=== PATIENT | female | born 1960 | race Caucasian/White ===

== ENCOUNTER 2016-08-06 12:59 | Emergency (ER) | payer MEDICAID ==
[~2016-08-06] VITALS: Ht 167.6 cm; Wt 83.9 kg
--- NOTE | 2016-08-06 13:48 | Emergency Room Report ---
History of Present Illness Time Seen by MD Berumen Presenting Problem in Triage Pt arrived:Walked Presenting Problem:PT PRESENTED TO [facility] WITH HEADACHE THAT MAKES HER NAUSEATED AND MADE HER VOMIT. PT STATES HER BP WAS ELEVATED OUT THERE AND THEY REFERRED HER TO ED. PT STATES HEADACHE STARTED WED AND THE PAIN IS THERE AND SPIKES AND MAKES HER STOP IN HER TRACKS. 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 N Clinical Suspician of Infection? N Mental Status: 1 - Regular (Normal Baseline) Sepsis Risk:Low Sepsis Risk Have you (or family members/close friends) recently traveled outside the [place]? N If Yes, where/when: Have you had exposure to infectious disease within the past month? TB? Other? Specify: Comment The patient states that on Sunday 5 days ago she was working around a tractor when she had sudden onset of an excruciating headache around the top of her head associated with nausea and dizziness. She says the headache was so severe that 20 minutes she could not walk. Since then she has had persistent frontal headache. Last evening at about 8:00 the headache again became severe while she was shopping. It remained severe into the night and she had some vomiting during the night. Currently she says her headache is just frontal and a slight occipital headache. She continues to have nausea. She denies loss of vision or double vision. She says when she tries to walk she does feel off balance. Yesterday when she was trying to write she says she couldn't spell like she normally does. Denies numbness or weakness of the extremities. Denies neck pain or stiffness. Denies photophobia. No history of severe headaches or migraines. No family history of subarachnoid hemorrhage or cerebral aneurysms. Her mother had a stroke. ALLERGIES Coded Allergies: No Known Allergies (08/06/16) History Medical History General Angina: No [place]: No Hypertension? No Hyperlipidemia? Yes CHF? No COPD? No Asthma? No Hernia? No CVA? No Seizures? No Diabetes? No UTI? Yes Stones? No GB Disease: Yes Hepatitis? No Cataracts? No Glaucoma? No TB? No Cancer? 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 Family History Family Hx Diabetes Yes CAD No Hypertension Yes Hyperlipidemia Yes Cancer No TB No Social History Smoking Hx Smoker: Former Smoker Tobacco: No Type Cigarettes Are you/the child exposed to second-hand smoke: No Alcohol Alcohol: No Review of Systems All Other Systems Reviewed and Negative Constitutional diaphoresis, denies fever Eyes denies blindness, denies photophobia Cardiovascular chest pain Gastrointestinal vomiting Psychiatric/Neurological headache, denies numbness, denies weakness Physical Exam Vital Signs Vital Signs Date Time Temp Pulse Resp B/P Pulse O2 O2 Flow FiO2 Ox Delivery Rate 08/06 1411 20 08/06 1403 68 20 136/78 98 08/06 1307 98.3 77 18 183/86 98 08/06 1304 98.3 77 18 183/86 98 General Appearance normal appearance, WD/WN Eye Exam - bilateral eye normal exam, bilateral eye PERRL, bilateral eye EOMI Ear, Nose, Throat hearing grossly normal, normal ENT inspection Neck normal inspection, non-tender, supple, full range of motion Respiratory Status Yes: trachea midline, chest symmetrical, non tender chest. No: respiratory distress. Lung Sounds bilateral: normal breath sounds, lungs clear. 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 Yes Edward was queried for this patient? No Reason not queried - emergent pt cond=no time Results/Orders Laboratory Tests 08/06/16 1345: Sodium 139, Potassium 3.5, Chloride 103, Carbon Dioxide 30, BUN 13, Creatinine 0.7, Estimated Creat Clear 122, Estimated GFR (MDRD) 87, Glucose 105, Calcium 9.5, Total Bilirubin 0.5, AST 22, ALT 39, Alkaline Phosphatase 153 H, Total Protein 8.2, Albumin 3.9, Globulin 4.3 H, Albumin/Globulin Ratio 0.9 L, WBC 6.6, RBC 4.82, Hgb 14.5, Hct 42.4, MCV 88.1, RDW 12.5, Plt Count 283, MPV 5.8 L , Gran % 75.9, Gran # 5.0, Lymphocytes % 18.4, Monocytes % 4.6, Eosinophils % 0.8, Basophils % 0.3, Lymphocytes # 1.2, Monocytes # 0.3, Eosinophils # 0.1, Basophils # 0.0, PUBS MCHC 34.1, MCH 30.1 Current Medication Orders Sig/Rocio Start time Last Medication Dose Route Stop Time Status Admin Morphine Sulfate 4 MG ONCE ONE 08/06 1415 DC 08/06 IV 08/06 1416 1411 Ondansetron HCl 4 MG ONCE ONE 08/06 1415 DC 08/06 IV 08/06 1416 1411 Ondansetron HCl 0 .STK-MED ONE 08/06 1409 DC .ROUTE Morphine Sulfate 0 .STK-MED ONE 08/06 1408 DC .ROUTE Sodium Chloride 10 ML PRN PRN 08/06 1330 AC IV 08/07 1318 Orders Procedure Date/time Status DIET-NOTHING BY MOUTH 08/[address] HEAD W/O CONTRAST 08/06 1322 Active IV SALINE LOCK 08/06 1318 Active CBC WITH AUTO DIFF 08/06 1318 Complete CHEM 12 PROFILE 08/[address] HEAD REQ 08/06 1317 Complete ELECTROCARDIOGRAM REQUEST 08/06 1313 Active CM/EKG CM/EKG Comments EKG interpreted by Benjamín Momin MD: Rhythm: sinus Rate: 75 [place]: normal Ectopy: none Conduction: normal ST Segment Changes: none T Wave Changes: none Q Waves: none No evidence of acute ischemia or injury Normal electrocardiogram XRAY/CT/US XRAY/CT/US CT head Comment CT scan interpreted by [facility] radiologist. Faxed report received and reviewed: No acute intracranial abnormality. Faint calcifications in the basal ganglia bilaterally. Progress - Uncertain about patient's description of her headache, could represent a sentinel bleed from an aneurysm. I feel she needs further evaluation. 2:30 PM: Case discussed with Dr. Hansen, [facility] stroke team. The patient was transferred to [facility] emergency department for further evaluation. Departure Departure Disposition DC/XFER from ER to [facility] Clinical Impression Primary Impression: Thunderclap headache Condition STABLE Referrals [facility] T[facility] (Family) ED Critical Care Critical Care No at [id number]
--- NOTE | 2016-08-06 13:48 | Emergency Room Report ---
History of Present Illness Time Seen by MD Berumen Presenting Problem in Triage Pt arrived:Walked Presenting Problem:PT PRESENTED TO [facility] WITH HEADACHE THAT MAKES HER NAUSEATED AND MADE HER VOMIT. PT STATES HER BP WAS ELEVATED OUT THERE AND THEY REFERRED HER TO ED. PT STATES HEADACHE STARTED WED AND THE PAIN IS THERE AND SPIKES AND MAKES HER STOP IN HER TRACKS. 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 N Clinical Suspician of Infection? N Mental Status: 1 - Regular (Normal Baseline) Sepsis Risk:Low Sepsis Risk Have you (or family members/close friends) recently traveled outside the [place]? N If Yes, where/when: Have you had exposure to infectious disease within the past month? TB? Other? Specify: Comment The patient states that on Sunday 5 days ago she was working around a tractor when she had sudden onset of an excruciating headache around the top of her head associated with nausea and dizziness. She says the headache was so severe that 20 minutes she could not walk. Since then she has had persistent frontal headache. Last evening at about 8:00 the headache again became severe while she was shopping. It remained severe into the night and she had some vomiting during the night. Currently she says her headache is just frontal and a slight occipital headache. She continues to have nausea. She denies loss of vision or double vision. She says when she tries to walk she does feel off balance. Yesterday when she was trying to write she says she couldn't spell like she normally does. Denies numbness or weakness of the extremities. Denies neck pain or stiffness. Denies photophobia. No history of severe headaches or migraines. No family history of subarachnoid hemorrhage or cerebral aneurysms. Her mother had a stroke. ALLERGIES Coded Allergies: No Known Allergies (08/06/16) History Medical History General Angina: No [place]: No Hypertension? No Hyperlipidemia? Yes CHF? No COPD? No Asthma? No Hernia? No CVA? No Seizures? No Diabetes? No UTI? Yes Stones? No GB Disease: Yes Hepatitis? No Cataracts? No Glaucoma? No TB? No Cancer? 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 Family History Family Hx Diabetes Yes CAD No Hypertension Yes Hyperlipidemia Yes Cancer No TB No Social History Smoking Hx Smoker: Former Smoker Tobacco: No Type Cigarettes Are you/the child exposed to second-hand smoke: No Alcohol Alcohol: No Review of Systems All Other Systems Reviewed and Negative Constitutional diaphoresis, denies fever Eyes denies blindness, denies photophobia Cardiovascular chest pain Gastrointestinal vomiting Psychiatric/Neurological headache, denies numbness, denies weakness Physical Exam Vital Signs Vital Signs Date Time Temp Pulse Resp B/P Pulse O2 O2 Flow FiO2 Ox Delivery Rate 08/06 1411 20 08/06 1403 68 20 136/78 98 08/06 1307 98.3 77 18 183/86 98 08/06 1304 98.3 77 18 183/86 98 General Appearance normal appearance, WD/WN Eye Exam - bilateral eye normal exam, bilateral eye PERRL, bilateral eye EOMI Ear, Nose, Throat hearing grossly normal, normal ENT inspection Neck normal inspection, non-tender, supple, full range of motion Respiratory Status Yes: trachea midline, chest symmetrical, non tender chest. No: respiratory distress. Lung Sounds bilateral: normal breath sounds, lungs clear. 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 Yes Edward was queried for this patient? No Reason not queried - emergent pt cond=no time Results/Orders Laboratory Tests 08/06/16 1345: Sodium 139, Potassium 3.5, Chloride 103, Carbon Dioxide 30, BUN 13, Creatinine 0.7, Estimated Creat Clear 122, Estimated GFR (MDRD) 87, Glucose 105, Calcium 9.5, Total Bilirubin 0.5, AST 22, ALT 39, Alkaline Phosphatase 153 H, Total Protein 8.2, Albumin 3.9, Globulin 4.3 H, Albumin/Globulin Ratio 0.9 L, WBC 6.6, RBC 4.82, Hgb 14.5, Hct 42.4, MCV 88.1, RDW 12.5, Plt Count 283, MPV 5.8 L , Gran % 75.9, Gran # 5.0, Lymphocytes % 18.4, Monocytes % 4.6, Eosinophils % 0.8, Basophils % 0.3, Lymphocytes # 1.2, Monocytes # 0.3, Eosinophils # 0.1, Basophils # 0.0, PUBS MCHC 34.1, MCH 30.1 Current Medication Orders Sig/Rocio Start time Last Medication Dose Route Stop Time Status Admin Morphine Sulfate 4 MG ONCE ONE 08/06 1415 DC 08/06 IV 08/06 1416 1411 Ondansetron HCl 4 MG ONCE ONE 08/06 1415 DC 08/06 IV 08/06 1416 1411 Ondansetron HCl 0 .STK-MED ONE 08/06 1409 DC .ROUTE Morphine Sulfate 0 .STK-MED ONE 08/06 1408 DC .ROUTE Sodium Chloride 10 ML PRN PRN 08/06 1330 AC IV 08/07 1318 Orders Procedure Date/time Status DIET-NOTHING BY MOUTH 08/[address] HEAD W/O CONTRAST 08/06 1322 Active IV SALINE LOCK 08/06 1318 Active CBC WITH AUTO DIFF 08/06 1318 Complete CHEM 12 PROFILE 08/[address] HEAD REQ 08/06 1317 Complete ELECTROCARDIOGRAM REQUEST 08/06 1313 Active CM/EKG CM/EKG Comments EKG interpreted by Benjamín Momin MD: Rhythm: sinus Rate: 75 [place]: normal Ectopy: none Conduction: normal ST Segment Changes: none T Wave Changes: none Q Waves: none No evidence of acute ischemia or injury Normal electrocardiogram XRAY/CT/US XRAY/CT/US CT head Comment CT scan interpreted by [facility] radiologist. Faxed report received and reviewed: No acute intracranial abnormality. Faint calcifications in the basal ganglia bilaterally. Progress - Uncertain about patient's description of her headache, could represent a sentinel bleed from an aneurysm. I feel she needs further evaluation. 2:30 PM: Case discussed with Dr. Hansen, [facility] stroke team. The patient was transferred to [facility] emergency department for further evaluation. Departure Departure Disposition DC/XFER from ER to [facility] Clinical Impression Primary Impression: Thunderclap headache Condition STABLE Referrals [facility] (Family) ED Critical Care Critical Care No at [id number]
[2016-08-06 13:56] LABS: LYMPH # 1.2 K/mm3 (0.7-4.5); LYMPH % 18.4 % (10-50.0)
[2016-08-06 13:57] LABS: HEMOGLOBIN 14.5 g/dL (12.2-16.2)
[2016-08-06 14:57] VITALS: BP 136/78
--- NOTE | 2016-08-06 14:58 | RADIOLOGY REPORT PS360 ---
CT HEAD W/O CONTRAST COMPARISON: None HISTORY: Headaches, dizziness, some slurred speech TECHNIQUE: Multiaxial scans obtained from base skull to the vertex and were performed without IV contrast. FINDINGS: The base of skull appears normal. The mastoids are clear. The ventricular system is normal. There is no ischemic infarct or bleed and there is bilateral symmetrical calcification in the basal ganglia. There is only minimal frontal cortical atrophy. Bony calvarium appears intact. IMPRESSION: No acute intracranial pathology identified, I agree with the [facility] report.
--- NOTE | 2016-08-06 14:58 | RADIOLOGY REPORT PS360 ---
CT HEAD W/O CONTRAST COMPARISON: None HISTORY: Headaches, dizziness, some slurred speech TECHNIQUE: Multiaxial scans obtained from base skull to the vertex and were performed without IV contrast. FINDINGS: The base of skull appears normal. The mastoids are clear. The ventricular system is normal. There is no ischemic infarct or bleed and there is bilateral symmetrical calcification in the basal ganglia. There is only minimal frontal cortical atrophy. Bony calvarium appears intact. IMPRESSION: No acute intracranial pathology identified, I agree with the [facility] report.
== END 2016-08-06 14:58 | disposition short-term general hospital (02) ==
LOC: ER 12:59
PROVIDERS: Emergency Medicine
DX: G44.53 Primary thunderclap headache (principal); I10 Essential (primary) hypertension; Z87.891 Personal history of nicotine dependence
CPT/HCPCS: J2405

== ENCOUNTER → 2017-02-16 | Outpatient (CLI) | payer MEDICAID ==
[2017-02-16 12:59] LABS: HEMOGLOBIN 14.7 g/dL (12.2-16.2); LYMPH % 23.6 % (10-50.0)
[2017-02-16 14:02] LABS: BUN 14 mg/dL (7-18)
[2017-02-16 14:12] LABS: GFR (ESTIMATED) 104 ML/MIN (59-)
[2017-02-17 08:39] LABS: Vitamin D, 25-Hydroxy 37.1 ng/mL (30.0-100.0)
== END ==
LOC: LAB 12:05
PROVIDERS: Nurse Practitioner Family
DX: R20.2 Paresthesia of skin (principal); Z00.00 Encounter for general adult medical examination without abnormal findings

== ENCOUNTER → 2017-05-08 | Outpatient (CLI) | payer MEDICAID | LOC: LAB 14:43 | DX: M25.50 Pain in unspecified joint (principal) ==